=== PATIENT | female | born 1965 | race Caucasian/White ===

== ENCOUNTER 2017-05-06 12:02 | Emergency (ER) | payer BC ==
[2017-05-06] MEDS ORDERED: SUMAtriptan 6 MG/0.5 ML SDV SUBCUT ONE (12:56)
[2017-05-06] MEDS ORDERED: Ketorolac 60 MG/2 ML SDV IM ONE (12:58)
--- NOTE | 2017-05-07 13:36 | EDM.PDOC ---
ED HPI GENERAL MEDICAL PROBLEM - General Chief Complaint: General Stated Complaint: migraine Time Seen by Provider: 05/06/17 12:05 Source of Information: Reports: Patient History Limitations: Reports: No Limitations - History of Present Illness INITIAL COMMENTS - FREE TEXT/NARRATIVE: This is a 51yo F with history of migraines that last 30minutes or longer. She usually gets these episodes a few times a year. She has had them for years. She states this last headache is worse and ranges at about 7/10 and has not improved since early this am. Patient states loud noises exacerbate the headache , lights as well. Patient denies recent illness. She was seen in the clinic at [facility] and was advised to f/u in the ER. Duration: Hour(s):, Constant Location: Reports: Head Severity: Severe Improves with: Reports: None Worsens with: Reports: None Associated Symptoms: Reports: Nausea/Vomiting headache Pain Score (Numeric/FACES): 7 - Related Data Allergies Allergy/AdvReac Type Severity Reaction Status Date / Time Sulfa (Sulfonamide Allergy Hives Verified 05/06/17 12:20 Antibiotics) Home Meds: Home Meds Sertraline HCl [Sertraline HCl] 50 mg PO DAILY 05/06/17 [History] atorvaSTATin Calcium [Atorvastatin Calcium] 10 mg PO DAILY 05/06/17 [History] ED ROS GENERAL - Review of Systems Review Of Systems: ROS reveals no pertinent complaints other than HPI. - Physical Exam Exam: See Below Exam Limited By: No Limitations General Appearance: Alert, WD/WN, Moderate Distress Eye Exam: Bilateral Eye: EOMI, PERRL Ears: Normal External Exam Nose: Normal Inspection Throat/Mouth: Normal Inspection Head Exam: Atraumatic, Normocephalic Neck: Normal Inspection Respiratory/Chest: No Respiratory Distress, Lungs Clear, Normal Breath Sounds Cardiovascular: Normal Peripheral Pulses, Regular Rate, Rhythm GI/Abdominal: Normal Bowel Sounds Neuro Exam (Abbreviated): Alert, Oriented, CN II-XII Intact, Normal Cognition, Normal Gait, Normal Reflexes, No Motor/Sensory Deficits Back Exam: Normal Inspection Extremities: Normal Inspection Psychiatric: Normal Affect, Normal Mood Skin Exam: Warm, Dry, Intact Course - Vital Signs Last Recorded V/S: Last Vital Signs Temp 37.0 C 05/06/17 12:09 Pulse 80 05/06/17 13:47 Resp BP 172/86 H 05/06/17 13:47 Pulse Ox 99 05/06/17 13:47 - Orders/Labs/Meds Meds: Medications Discontinued Medications Generic Name Dose Route Start Last Admin Trade Name Bharat PRN Reason Stop Dose Admin Ketorolac Tromethamine 60 mg 05/06/17 12:58 05/06/17 13:04 Toradol IM 05/06/17 12:59 60 mg ONETIME ONE Administration Sumatriptan Succinate 6 mg 05/06/17 12:56 05/06/17 13:01 Imitrex SUBCUT 05/06/17 12:57 6 mg ONETIME ONE Administration Departure - Departure Time of Disposition: 14:00 Disposition: Home, Self-Care 01 Condition: Good Clinical Impression: Migraine headache without aura Qualifiers: Status migrainosus presence: without status migrainosus Intractability: intractable Qualified Code(s): G43.019 - Migraine without aura, intractable, without status migrainosus - Discharge Information Instructions: Migraine Headache, [id number] Referrals: PCP,None [Primary Care Provider] - Forms: ED Department Discharge Additional Instructions: Go home and get some rest. Drink plenty of fluids and return if the headache gets worse or does not go away. Counseled on medications and use. Patient has never tried sumatriptan - prescription given and counseled on side effects and f/u with PCP.
== END 2017-05-06 14:00 | disposition home or self-care (01) ==
LOC: LB.ED 12:02
DX: G43.019 Migraine without aura, intractable, without status migrainosus (principal); Z79.899 Other long term (current) drug therapy; Z88.2 Allergy status to sulfonamides
CPT/HCPCS: 96372; 99283; J1885; J3030